=== PATIENT | male | born 1960 | race Caucasian/White ===

== ENCOUNTER 2017-04-24 10:52 | Emergency (ER) | payer SELFPAY ==
[2017-04-24] MEDS ORDERED: OXYCODONE-ACETAMINOPHEN 5-325 MG TABLET PO ONE (12:55)
--- NOTE | 2017-04-24 12:58 | ER Document Report ---
ED General - General Chief Complaint: Fall Injury Stated Complaint: BACK PAIN Time Seen by Provider: 04/24/17 12:51 Mode of Arrival: Ambulatory Information source: Patient TRAVEL OUTSIDE OF THE [place] IN LAST 30 DAYS: No - HPI Patient complains to provider of: fall, left hip pain Onset: This morning Onset/Duration: Sudden Quality of pain: Dull Associated symptoms: None Exacerbated by: Denies Relieved by: Denies Similar symptoms previously: No Recently seen / treated by doctor: No Notes: Patient is a 56-year-old male who was up on a ladder approx 6 7 feet height. Patient states he fell off a ladder landing on his left lower back and left hip. Patient was ambulatory after the fall. Patient denies hitting his head. No syncope or LOC. - Related Data Allergies/Adverse Reactions: codeine [Codeine] Allergy (Verified 04/24/17 11:21) ketorolac tromethamine [From Toradol] Allergy (Verified 04/24/17 11:21) Penicillins Allergy (Verified 04/24/17 11:21) tramadol [Tramadol] Allergy (Verified 04/24/17 11:21) Past Medical History - General Information source: Patient - Social History Smoking Status: Current Every Day Smoker Family History: Reviewed & Not Pertinent - Past Medical History Cardiac Medical History: Reports: Hx Hypertension Renal/ Medical History: Denies: Hx Peritoneal Dialysis - Immunizations Hx Diphtheria, Pertussis, Tetanus Vaccination: Yes Review of Systems - Review of Systems Musculoskeletal: Back pain, Other - Hip pain Physical Exam - Vital signs Vitals: Pulse BP Pulse Ox 100 158/107 H 94 04/24/17 11:19 04/24/17 11:19 04/24/17 11:19 Interpretation: Normal - General General appearance: Appears well, Alert - HEENT Head: Normocephalic, Atraumatic Eyes: Normal Pupils: PERRL - Respiratory Respiratory status: No respiratory distress Chest status: Nontender Breath sounds: Normal Chest palpation: Normal - Cardiovascular Rhythm: Regular Heart sounds: Normal auscultation Murmur: No - Abdominal Inspection: Normal Distension: No distension Bowel sounds: Normal Tenderness: Nontender Organomegaly: No organomegaly - Back Back: Normal, Nontender, Other - no visible trauma - Extremities General upper extremity: Normal inspection, Nontender, Normal color, Normal ROM , Normal temperature General lower extremity: Normal inspection, Nontender, Normal color, Normal ROM , Normal temperature, Normal weight bearing. No: Demarcus's sign Hip: Pain with ROM - Neurological Neuro grossly intact: Yes Cognition: Normal Orientation: AAOx4 [place] Coma Scale Eye Opening: Spontaneous [place] Coma Scale Verbal: Oriented [place] Coma Scale Motor: Obeys Commands Ashley Coma Scale Total: 15 Speech: Normal Motor strength normal: LUE, RUE, LLE, RLE Sensory: Normal - Psychological Associated symptoms: Normal affect, Normal mood - Skin Skin Temperature: Warm Skin Moisture: Dry Skin Color: Normal Course - Re-evaluation Re-evalutation: 04/24/17 14:00 There is no radiographic evidence of fracture per radiology. Results discussed with patient. Patient is allergic to Toradol and tramadol. He is requesting opioid pain medication. I have queried the [place] controlled substance database. - Vital Signs Vital signs: Temp Pulse Resp BP Pulse Ox 100 158/107 H 94 04/24/17 11:19 04/24/17 11:19 04/24/17 11:19 - Diagnostic Test Radiology reviewed: Reports reviewed Radiology results interpreted by me: 04/24/17 14:00 Left hip and lumbar spine x-rays read as negative by radiologist Discharge - Discharge Clinical Impression: Contusion Disposition: HOME, SELF-CARE Instructions: Contusion ([facility]) Additional Instructions: Follow-up with your primary care provider. Return to the emergency department if worse or for any other problems. Prescriptions: Hydrocodone/Acetaminophen [[place] 5-325 mg Tablet] 1 tab PO Q6HP PRN #10 tablet PRN Reason: pain
--- NOTE | 2017-04-24 13:28 | RADIOLOGY REPORT (SQ) ---
EXAM DESCRIPTION: HIP LEFT AP/LATERAL COMPLETED DATE/TIME: 04/24/2017 1:19 pm REASON FOR STUDY: fall COMPARISON: None. NUMBER OF VIEWS: Two views. TECHNIQUE: AP pelvis and additional frog-leg view of the left hip. LIMITATIONS: None. FINDINGS: MINERALIZATION: Normal. LEFT HIP: No fracture or dislocation. No worrisome bone lesions. RIGHT HIP: No fracture or dislocation. No worrisome bone lesions. PUBIS AND ISCHIUM: No fracture. PELVIS: No fracture. SACRUM: No fracture or dislocation. No worrisome bone lesions. LOWER LUMBAR SPINE: No fracture or dislocation. No worrisome bone lesions. No significant disc disea se. SOFT TISSUES: No findings. OTHER: No other significant finding. IMPRESSION: NEGATIVE STUDY OF THE LEFT HIP AND PELVIS. NO RADIOGRAPHIC EVIDENCE OF ACUTE INJURY. TECHNICAL DOCUMENTATION: JOB ID: [id number] [employer]- All Rights Reserved
--- NOTE | 2017-04-24 13:29 | RADIOLOGY REPORT (SQ) ---
EXAM DESCRIPTION: L SPINE 2 VIEWS COMPLETED DATE/TIME: 04/24/2017 1:19 pm REASON FOR STUDY: fall COMPARISON: 2013 NUMBER OF VIEWS: Two views. TECHNIQUE: AP and lateral radiographic images acquired of the lumbar spine. LIMITATIONS: None. FINDINGS: MINERALIZATION: Normal. SEGMENTATION: Normal. No transitional anatomy. ALIGNMENT: Mild convex leftward lumbar curvature, stable. VERTEBRAE: Maintained height. No fracture or worrisome bone lesion. DISCS: Diffuse disc space narrowing with bulky anterior and leftward osteophytes at multiple levels, similar compared to 2014. POSTERIOR ELEMENTS: Pedicles and facets are intact. No pars defect or posterior arch defects. Moder ate bilateral facet arthropathy at L4-5 and L5-S1. HARDWARE: None in the spine. PARASPINAL SOFT TISSUES: Normal. PELVIS: Intact as visualized. No fractures or worrisome bone lesions. SI joints intact. OTHER: No other significant finding. IMPRESSION: Diffuse degenerative disc changes, similar compared to prior plain films from 2014 TECHNICAL DOCUMENTATION: JOB ID: [id number] [employer]- All Rights Reserved
[2017-04-24 14:22] VITALS: BP 168/86
== END 2017-04-24 14:35 | disposition home or self-care (01) ==
LOC: ER 10:52
DX: T14.8XXA Other injury of unspecified body region, initial encounter (principal); M25.552 Pain in left hip; M54.9 Dorsalgia, unspecified; W11.XXXA Fall on and from ladder, initial encounter; I10 Essential (primary) hypertension; F17.200 Nicotine dependence, unspecified, uncomplicated; Z88.5 Allergy status to narcotic agent; Z88.8 Allergy status to other drugs, medicaments and biological substances; Z88.0 Allergy status to penicillin
CPT/HCPCS: 72100; 99283